=== PATIENT | female | born 1940 | race Caucasian/White ===

== ENCOUNTER 2017-12-09 22:19 | Emergency (ER) | payer OTHER ==
[~2017-12-09] VITALS: Ht 162.6 cm; Wt 83.9 kg
[~2017-12-09 22:19] MED LIST: ASPIR 8181 MG PO; CIPRO500 MG; FIBERCON625 M1 PO; FLAGYL500 MG PO; FLORANEX TABLE1 EACH PO; NORVASC10 MG PO; PERCOCET PO; SILVADENE20 GM TP; TRAMADOL 50 MG50 MG PO
[2017-12-09] MEDS ORDERED: PLAVIX 75 MG TA75 M1 (22:39)
[2017-12-09] MEDS ORDERED: HYDROCODON-ACE1 EAC7 PO (23:50)
[2017-12-10 00:25] VITALS: BP 172/67
== END 2017-12-10 00:25 | disposition home or self-care (01) ==
LOC: M.ERS 22:19
DX: S62.001A Unspecified fracture of navicular [scaphoid] bone of right wrist, initial encounter for closed fracture (principal); S93.492A Sprain of other ligament of left ankle, initial encounter; Z88.1 Allergy status to other antibiotic agents; Z88.5 Allergy status to narcotic agent; Z88.0 Allergy status to penicillin; Z88.8 Allergy status to other drugs, medicaments and biological substances; W01.0XXA Fall on same level from slipping, tripping and stumbling without subsequent striking against object, initial encounter; Y93.89 Activity, other specified; Y92.89 Other specified places as the place of occurrence of the external cause; Y99.8 Other external cause status